=== PATIENT | male | born 1950 | race Caucasian/White ===

== ENCOUNTER 2019-09-28 18:57 | Inpatient (IN) | payer MEDICARE, MEDICAID ==
[~2019-09-28] VITALS: Ht 180.3 cm; Wt 69.6 kg
[~2019-09-28 18:57] MED LIST: DIPH-654 GT; FLUC10SU; VALA10002 PO; [UNRECOGNIZED DRUG - REMARK]
[2019-09-28 20:47] LABS: BASOPHILS % (AUTO) 0.4 % (0.0-2.0); EOSINOPHILS % (AUTO) 1.2 % (1.0-6.0); HEMATOCRIT 43.2 % (41-53); HEMOGLOBIN 14.8 g/dL (13.5-17.5); LYMPHOCYTES % (AUTO) 15.5 % (22.0-44.0); MEAN CORPUSCULAR HEMOGLOBIN 32.7 pg (26.0-34.0); MEAN CORPUSCULAR HGB CONC 34.3 G/dL (31.0-37.0); MEAN CORPUSCULAR VOLUME 96 fL (80-100); MONOCYTES # (AUTO) 0.4 K/uL (0.1-1.0); MONOCYTES % (AUTO) 6.9 % (2.0-9.0); NEUTROPHILS # (AUTO) 4.9 K/uL (1.8-7.7); PLATELET COUNT (AUTO) 187 K/uL (150-450); RED BLOOD CELL COUNT(AUTO) 4.52 MIL/uL (4.50-5.90); RED CELL DISTRIBUTION WIDTH 14.8 % (11.5-14.5)
[2019-09-28] MEDS ORDERED: GLUCAGON,HUMAN RECOMBINANT 1 MG VIAL IVP ONE (21:15)
[2019-09-28 21:17] LABS: ALANINE AMINOTRANSFERASE 30 U/L (12-78); ALKALINE PHOSPHATASE 67 U/L (46-116); ANION GAP 7 mmol/L (8-16); ASPARTATE AMINOTRANSFERASE 30 U/L (15-37); BILIRUBIN,TOTAL 0.6 mg/dL (0.1-1.0); CALCIUM, TOTAL 9.3 mg/dL (8.8-10.5); CARBON DIOXIDE 31 mmol/L (22-29); CHLORIDE 101 mmol/L (98-107); CREATININE 1.56 mg/dL (0.60-1.30); GLOMERULAR FILTR. RATE CALC 44 mL/min (>60); GLUCOSE,RANDOM 93 mg/dL (70-110); POTASSIUM 4.7 mmol/L (3.5-5.1); SODIUM SERUM 139 mmol/L (136-145); TOTAL PROTEIN, SERUM 8.1 g/dL (6.4-8.2)
[2019-09-28 21:24] LABS: UREA NITROGEN, BLOOD 30 mg/dL (7-18)
[2019-09-28] MEDS ORDERED: ACETAMINOPHEN 325 MG TABLET PO PRN (23:45)
[2019-09-28] MEDS ORDERED: BISACODYL 10 MG RECTAL RECTAL SUPPOSITORY PR PRN (23:45)
[2019-09-28] MEDS ORDERED: ONDANSETRON HCL 4 MG/2 ML VIAL IVP PRN (23:45)
[2019-09-28] MEDS ORDERED: DEXTROSE 5%-0.45% SODIUM CHL 1,000 ML IV ONE (23:45)
[2019-09-29] MEDS ORDERED: LISINOPRIL 10 MG TABLET PO ONE (01:15)
[2019-09-29] MEDS ORDERED: HydrALAZINE HCL 20 MG/ML VIAL IVP ONE (01:30)
[2019-09-29 03:30] VITALS: BP 160/99
[2019-09-29 07:05] VITALS: BP 156/95
[2019-09-29] MEDS ORDERED: PANTOPRAZOLE SODIUM 40 MG/VIAL IVP SCH (09:00)
[2019-09-29 09:15] VITALS: BP 136/89
[2019-09-29 11:00] VITALS: BP 131/97
== END 2019-09-29 12:30 | disposition home or self-care (01) | DRG 394 ==
LOC: EMS 18:58 → 4E 23:30
PROVIDERS: ADMIT Internal Medicine; ATTEND Internal Medicine
PROC: 0DJ08ZZ Inspection of Upper Intestinal Tract, Via Natural or Artificial Opening Endoscopic (ICD-10-PCS; principal; 2019-09-29 08:00)
DX: T18.128A Food in esophagus causing other injury, initial encounter (principal); N17.9 Acute kidney failure, unspecified; Z21 Asymptomatic human immunodeficiency virus [HIV] infection status; I10 Essential (primary) hypertension; R13.14 Dysphagia, pharyngoesophageal phase; F12.90 Cannabis use, unspecified, uncomplicated; X58.XXXA Exposure to other specified factors, initial encounter; Y93.89 Activity, other specified; Y92.89 Other specified places as the place of occurrence of the external cause; Y99.8 Other external cause status; Z88.8 Allergy status to other drugs, medicaments and biological substances; Z88.2 Allergy status to sulfonamides; Z80.9 Family history of malignant neoplasm, unspecified
CPT/HCPCS: C9113; G0378; G0480; J0360; J1610

== ENCOUNTER 2023-06-09 16:51 | Emergency (ER) | payer MEDICARE, MEDICAID ==
[~2023-06-09] VITALS: Ht 180.3 cm; Wt 72.7 kg
[2023-06-09] MEDS ORDERED: 0.9% SODIUM CHLORIDE 10 ML SYRINGE IVP ONE (16:53)
[2023-06-09] MEDS ORDERED: SODIUM BICARBONATE 50 MEQ/50 ML VIAL IV ONE (16:53)
[2023-06-09] MEDS ORDERED: EPINEPHrine 1:10,000 [1 MG/10 ML] SYRINGE IVP ONE (16:53)
[2023-06-09] MEDS ORDERED: 0.9% SODIUM CHLORIDE 10 ML SYRINGE IVP PRN (17:30)
[2023-06-09] MEDS ORDERED: ACETAMINOPHEN 1000 MG/ISO-OSM 100 ML IV ONE ×2 (17:30)
[2023-06-09] MEDS ORDERED: SODIUM CHLORIDE 0.9% 2,200 ML IV ONE (17:30)
[2023-06-09 17:38] LABS: HEMATOCRIT 35.9 % (41-53); HEMOGLOBIN 11.8 g/dL (13.5-17.5); MEAN CORPUSCULAR HEMOGLOBIN 31.8 pg (26.0-34.0); MEAN CORPUSCULAR VOLUME 97 fL (80-100); PLATELET COUNT (AUTO) 105 K/uL (150-450); RED BLOOD CELL COUNT(AUTO) 3.72 MIL/uL (4.50-5.90); RED CELL DISTRIBUTION WIDTH 16.1 % (11.5-14.5)
[2023-06-09 17:51] LABS: PROTHROMBIN TIME 10.7 SEC (9.4-11.6)
[2023-06-09 18:01] LABS: B-TYPE NATRIURETIC PEPTIDE 34 pg/mL (0-100)
[2023-06-09 18:04] LABS: ANION GAP 11 mmol/L (8-16); CALCIUM, TOTAL 8.7 mg/dL (8.8-10.5); CARBON DIOXIDE 23 mmol/L (22-29); CHLORIDE 101 mmol/L (98-107); CREATININE 2.59 mg/dL (0.60-1.30); GLOMERULAR FILTR. RATE CALC 24 mL/min (>60); GLUCOSE,RANDOM 92 mg/dL (70-110); POTASSIUM 4.6 mmol/L (3.5-5.1); SODIUM SERUM 135 mmol/L (136-145); UREA NITROGEN, BLOOD 34 mg/dL (7-18)
[2023-06-09 18:09] LABS: WHITE BLOOD COUNT (AUTO) 0.8 K/uL (4.5-11.0)
[2023-06-09 18:10] LABS: ALANINE AMINOTRANSFERASE 103 U/L (12-78); ALKALINE PHOSPHATASE 250 U/L (46-116); ASPARTATE AMINOTRANSFERASE 90 U/L (15-37); BILIRUBIN,TOTAL 1.3 mg/dL (0.1-1.0); TOTAL PROTEIN, SERUM 6.9 g/dL (6.4-8.2)
[2023-06-09 18:12] LABS: TROPONIN I-HIGH SENSITIVITY 14 ng/L (<76)
[2023-06-09 18:14] LABS: LACTIC ACID 7.9 mmol/L (0.4-2.0)
[2023-06-09] MEDS ORDERED: LEVOFLOXACIN 750 MG/D5% WATER 150 ML IV ONE (18:30)
[2023-06-09 20:10] LABS: BAND NEUTROPHILS % (MANUAL) 0 % (0-5)
[2023-06-09 20:11] LABS: BUFFY COAT SMEAR PREP YES (NOT DONE); EOSINOPHILS % (MANUAL) 1 % (1-6); LYMPHOCYTES % (MANUAL) 26 % (22-44); MONOCYTES % (MANUAL) 16 % (2-9); SEGMENTED NEUTROPHILS % 57 % (40-70); TOTAL CELLS COUNTED 100
[2023-06-09 23:21] LABS: COVID AG,FIA SOURCE NASAL SWAB
[2023-06-09 23:44] VITALS: BP 112/71; PULSE 160; RESP 24; TEMP 98.3
[2023-06-09 23:44] LABS: SARS-COV2 (COVID) ANTIGEN,FIA Negative (Negative)
== END 2023-06-09 23:55 ==
LOC: EMS 16:52
DX: I46.9 Cardiac arrest, cause unspecified (principal); F12.90 Cannabis use, unspecified, uncomplicated; Z98.890 Other specified postprocedural states; Z88.2 Allergy status to sulfonamides; Z88.8 Allergy status to other drugs, medicaments and biological substances; Z20.822 Contact with and (suspected) exposure to COVID-19
CPT/HCPCS: 99291; 31500; 96360; 87426; 80053; 83605; 83880; 84484; 85025; 85610; 85730; 87040; 87205; 36415; 87077; 93005; 51702; 99152; 84145; 85009; J0171; J3490; J7030; C9803